=== PATIENT | male | born 1975 | race African-American/Black ===

== ENCOUNTER 2023-08-02 15:11 | Emergency (ER) | payer OTHER ==
[2023-08-02 15:16] VITALS: BMI 25.0
[2023-08-02] MEDS ORDERED: traMADol HCL 50 MG TABLET PO ONE (15:55)
[2023-08-02] MEDS ORDERED: KETOROLAC TROMETHAMINE 30 MG/1 ML VIAL IM ONE (17:12)
[2023-08-02] MEDS ORDERED: ACETAMINOPHEN 500 MG TABLET (FP) PO ONE (17:12)
[2023-08-02] MEDS ORDERED: LIDOCAINE 5% TOPICAL PATCH TP ONE (17:12)
[2023-08-02] MEDS ORDERED: LIDOCAINE 4% PATCH TP ONE (17:13)
[2023-08-02] MEDS ORDERED: ACETAMINOPHEN 325 MG TABLET (FP) ONE (17:13)
[2023-08-02 17:23] LABS: BASO % 0.8 % (0-2.0); HEMATOCRIT 43.8 % (35.4-49); HEMOGLOBIN 15.1 GM/dL (11.7-16.9); LYMPH % 24.9 % (8-40); MCH 31.9 pg (25.7-33.7); MCHC 34.5 g/dl (32.0-35.9); MEAN CELL VOLUME 92.7 fl (80-96); MEAN PLT VOLUME 7.8 fl (7.5-11.1); MONO % 7.3 % (3.8-10.2); PLATELET COUNT 414 10^3/uL (134-434); RBC 4.73 M/mm3 (4.00-5.60); RDW 13.1 % (11.9-15.9); WHITE BLOOD COUNT 10.6 K/mm3 (4.0-10.0)
[2023-08-02 17:27] LABS: EPI CELLS 4 /uL (0-25.1); HYALINE CASTS 0 /uL (0-3.1); URINE APPEARANCE CLEAR; URINE BACTERIA 6 /uL (0-1359); URINE BILIRUBIN NEGATIVE (NEGATIVE); URINE COLOR YELLOW; URINE GLUCOSE (UA) NEGATIVE (NEGATIVE); URINE KETONE NEGATIVE (NEGATIVE); URINE LEUK ESTERASE NEGATIVE (NEGATIVE); URINE NITRITE NEGATIVE (NEGATIVE); URINE PROTEIN TRACE (NEGATIVE); URINE RBC 134 /uL (0-23.9); URINE WBC 8 /uL (0-25.8)
[2023-08-02 17:48] LABS: CALCIUM 9.8 mg/dL (8.5-10.1)
[2023-08-02 17:49] LABS: ALBUMIN 4.1 g/dl (3.4-5.0)
[2023-08-02 17:52] LABS: CREATININE 0.9 mg/dL (0.55-1.3)
[2023-08-02 17:53] LABS: BILIRUBIN,TOTAL 0.4 mg/dL (0.2-1)
[2023-08-02 17:54] LABS: TOT PROT 7.6 g/dl (6.4-8.2)
[2023-08-02 18:41] VITALS: BP 163/97; PULSE 82; RESP 16; TEMP 98.4
[2023-08-02] MEDS ORDERED: LIDOCAINE PATCH REMOVAL MC SCH (22:00)
== END 2023-08-02 19:38 | disposition home or self-care (01) ==
LOC: JER 15:11
PROC: 3E0233Z Introduction of Anti-inflammatory into Muscle, Percutaneous Approach (ICD-10-PCS; principal; 2023-08-02)
DX: M54.2 Cervicalgia (principal); M25.512 Pain in left shoulder; I10 Essential (primary) hypertension; W10.8XXA Fall (on) (from) other stairs and steps, initial encounter; Z20.822 Contact with and (suspected) exposure to COVID-19
CPT/HCPCS: 0241U-QW; 36415; 71101-TC-LT-FY; 72125-TC; 73030-TC-LT-FY; 80053; 81003; 85025; 93005; 93010; 99285-25